=== PATIENT | male | born 1970 | race Caucasian/White ===

== ENCOUNTER 2017-07-22 04:01 | Emergency (ER) | payer BC ==
--- NOTE | 2017-07-22 04:28 | ERNOTE ---
Chest Pain/Cardiac HPI Chief Complaint: Chest Pain Time Seen by Provider: 07/22/17 04:17 Source: patient Exam Limitations: no limitations Immunizations: IMMUNIZATION HX Immunizations Up to Date Yes History of Influenza Vaccine No Hx Pneumococcal Vaccination No Allergies/Adverse Reactions: Allergies No Known Allergies Allergy (Verified 07/22/17 04:11) Home Medications: HOME MEDICATIONS NK [No Home Medication] 06/04/12 [Last Taken Unknown] Narrative: Pt has had URI symptoms for 4-5 days. This morning he began to have some chest tightness and describes it as a coolness that waxed and waned. Timing: getting worse Severity/Quality: moderate, tightness Location: other - across lower chest Chest Pain Radiation: back Activities at Onset: sleep Modifying Factors - Worsens: Present: position Review of Systems - Review of Systems Constitutional: Present: recent illness. Absent: fever, chills EYE: Present: no symptoms reported ENT: Present: nose congestion, nasal drainage, sore throat - mild Respiratory: Present: See HPI, cough. Absent: shortness of breath Cardiology: Present: no symptoms reported Gastrointestinal/Abdominal: Present: no symptoms reported Genitourinary: Present: no symptoms reported Musculoskeletal: Present: no symptoms reported Skin: Present: no symptoms reported Neurological: Present: no symptoms reported Endocrine: Absent: excessive sweating, flushing Hematologic/Lymphatic: Present: no symptoms reported Psych: Present: no symptoms reported - Patient's Past Medical History Patient History - Medical: No pertinent hx Patient History - Cardiac/Respiratory: No pertinent hx Patient History - Cancer: No Hx of Cancer Patient History - Surgical Procedures: Other Patient History - Other: None - Social History Living Situations: home Psych History: No pertinent hx Smoking Status: Never smoker Have you smoked in the past 12 months: No Do you dip or chew tobacco: No Alcohol Use: none Drug Use: none - Immunizations Immunizations Up to Date: Yes Hx Pneumococcal Vaccination: No History of Influenza Vaccine: No Physical Exam - Physical Exam General Appearance: Present: wd/wn, alert, no apparent distress Head Exam: Present: normal inspection, no evidence of injury Ears, Nose, Throat: Present: sinus pain/drainage, pharyngeal erythema - mild cobblestoning posterior Neck: Present: normal inspection, nontender Respiratory: Present: no respiratory distress, normal breath sounds, no accessory muscle use, lungs clear Cardiovascular/Chest: Present: regular rate, rhythm, no murmur, normal peripheral pulses Back Exam: Present: normal inspection, normal range of motion Extremity Exam: Present: normal inspection, normal range of motion, no edema Neurological Exam: Present: alert, oriented, normal mood/affect Skin Exam: Present: normal color, warm/dry Lymphatic Exam: Present: no adenopathy ED Progress - Results and Orders Patient's Lab Results:: I have reviewed the patient's lab results. Results and Orders: Laboratory Tests 07/22/17 07/22/17 04:35 04:35 WBC 8.4 Hgb 16.0 Hct 44.5 Plt Count 234 Troponin I Less than 0.017 - Vital Signs Patient's Vital Signs:: I have reviewed the patient's vital signs. Vital Signs: Vital Signs 07/22/17 07/22/17 04:03 04:11 Temperature 36.7 C Pulse Rate 74 77 Respiratory 18 Rate O2 Sat by Pulse 97 Oximetry - EKG EKG: NSR, no ST T wave changes EKG read: Interp. by me - X-Ray X-Ray #1 X-Ray: chest Interpretation: Interp. by me X-ray Comments: no infiltrate or effusion, kraig-bronchial cuffing present suggesting bronchitis - Progress/Reassessment Chief Complaint: Chest Pain Progress:: Unchanged Departure Clinical Impression: Bronchitis - Departure Disposition: Home self-care Condition: Good Instructions: Acute Bronchitis, [id number] Additional Instructions: Drink plenty of fluids, use Mucinex or similar expectorant. See your primary care provider if not improving Referrals: Estephania Matt MD [Primary Care Provider] -
[2017-07-22 04:40] LABS: Hematocrit 44.5 % (42.0-52.0); Mean Cell Volume 84.9 fl (78-100); Mean Corpuscular Hemoglobin 30.5 pg (27-31); Mean Platelet Volume 9.1 fl (6.0-9.5); Neutrophil % 59.4 % (42-75.0); Platelet Count 234 K/mm3 (150-450); Red Blood Count 5.24 M/mm3 (4.7-6.0); Red Cell Distribution Width 11.6 % (11.5-14.0); White Blood Count 8.4 K/mm3 (4.0-10.5)
[2017-07-22 06:08] VITALS: BP 137/95
== END 2017-07-22 06:00 | disposition home or self-care (01) ==
LOC: ER 04:01
DX: J40 Bronchitis, not specified as acute or chronic